=== PATIENT | female | born 1990 ===

== ENCOUNTER 2021-02-18 12:15 | Emergency (ER) | payer OTHER ==
[2021-02-18 12:36] VITALS: BP 127/83
--- NOTE | 2021-02-18 12:36 | Emergency Department Report ---
ED Extremity Problem HPI - General Stated complaint: TOE INJURY - History of Present Illness Initial comments: 30-year-old female presents to the ER with chief complaint of left third toe pain after accidentally kicking a weight. She denies any other injuries. Pain is aggravated by movement. Rates it a 6 out of 10 in severity. She denies any known past medical history, current medication use or known allergies to medications. - Related Data Previous Rx's Medication Instructions Recorded Last Taken Type Naproxen [Naprosyn TAB] 500 mg PO BID #20 tablet 02/18/21 Unknown Rx Allergies Allergy/AdvReac Type Severity Reaction Status Date / Time Penicillins AdvReac Unknown Verified 05/02/16 13:44 ED Review of Systems ROS: Stated complaint: TOE INJURY Other details as noted in HPI Comment: All other systems reviewed and negative Constitutional: denies: chills, fever Eyes: denies: eye pain, eye discharge, vision change ENT: denies: ear pain, throat pain Respiratory: denies: cough, shortness of breath, wheezing Cardiovascular: denies: chest pain, palpitations Endocrine: no symptoms reported Gastrointestinal: denies: abdominal pain, nausea, diarrhea Genitourinary: denies: urgency, dysuria, discharge Musculoskeletal: as per HPI, arthralgia. denies: back pain, joint swelling Skin: denies: rash, lesions Neurological: denies: headache, weakness, paresthesias Psychiatric: denies: anxiety, depression Hematological/Lymphatic: denies: easy bleeding, easy bruising ED Past Medical Hx - Social History Smoking Status: Never Smoker Substance Use Type: None - Medications Home Medications: Home Medications Medication Instructions Recorded Confirmed Last Taken Type Naproxen [Naprosyn TAB] 500 mg PO BID #20 tablet 02/18/21 Unknown Rx ED Physical Exam - General General appearance: alert, in no apparent distress - Head Head exam: Present: atraumatic, normocephalic - Eye Eye exam: Present: normal appearance - ENT ENT exam: Present: normal exam, normal orophraynx, mucous membranes moist - Neck Neck exam: Present: normal inspection. Absent: tenderness, meningismus - Respiratory Respiratory exam: Present: normal lung sounds bilaterally. Absent: respiratory distress, wheezes, rales, rhonchi, stridor - Cardiovascular Cardiovascular Exam: Present: regular rate, normal rhythm, normal heart sounds. Absent: systolic murmur, diastolic murmur, rubs, gallop - GI/Abdominal GI/Abdominal exam: Present: soft, normal bowel sounds - Extremities Exam Extremities exam: Present: normal inspection, full ROM, tenderness (Tenderness palpation over the left third distal toe with mild erythema. No deformity. Normal distal sensation cap refill.) - Back Exam Back exam: Present: normal inspection - Neurological Exam Neurological exam: Present: alert, oriented X3 - Psychiatric Psychiatric exam: Present: normal affect, normal mood - Skin Skin exam: Present: warm, dry, intact, normal color. Absent: rash ED Course Vital Signs 02/18/21 12:33 Temperature 98.7 F Pulse Rate 75 Respiratory 16 Rate Blood Pressure 127/83 O2 Sat by Pulse 100 Oximetry ED Medical Decision Making - Medical Decision Making Patient: ДМИТРИЙ CARR R#: [id number] : 1990 Acct:[id number] Age/Sex: 30 / F ADM Date: 02/18/21 Loc: ED Attending Dr: Ordering Physician: SUSAN PINEDA Date of Service: 02/18/21 Procedure(s): XR toe(s) 2+V LT Accession Number(s): [id number] cc: SUSAN PINEDA Fluoro Time In Minutes: LEFT THIRD TOE 3 VIEWS 1322 INDICATION: pain, swelling, injury COMPARISON: None available. FINDINGS: Toes are mildly flexed. No obvious fractures or dislocations are seen. Signer Name: Hernandez Beltran MD Signed: 02/18/2021 1:45 PM Workstation Name: [id number] Transcribed By: GJ Dictated By: Hernandez Beltran MD Electronically Authenticated By: Hernandez Beltran MD Signed Date/Time: 02/18/21 1345 - Differential Diagnosis Strain, sprain, contusion Critical care attestation.: If time is entered above; I have spent that time in minutes in the direct care of this critically ill patient, excluding procedure time. ED Disposition Clinical Impression: Toe contusion Qualifiers: Encounter type: initial encounter Toe: lesser toe Damage to nail status: without damage Laterality: left Qualified Code(s): S90.122A - Contusion of left lesser toe(s) without damage to nail, initial encounter Disposition: DC-01 TO HOME OR SELFCARE Is pt being admited?: No Condition: Stable Instructions: Contusion, [id number] Prescriptions: Naproxen [Naprosyn TAB] 500 mg PO BID #20 tablet Referrals: TEN LANCASTER DPM [Staff Physician] - 3-5 Days Time of Disposition: 14:24
--- NOTE | 2021-02-18 13:49 | XRay Report ---
LEFT THIRD TOE 3 VIEWS 1322 INDICATION: pain, swelling, injury COMPARISON: None available. FINDINGS: Toes are mildly flexed. No obvious fractures or dislocations are seen. Signer Name: Hernandez Beltran MD Signed: 02/18/2021 1:45 PM Workstation Name: [id number]
== END 2021-02-18 14:52 | disposition home or self-care (01) ==
LOC: ED 12:15
DX: S90.122A Contusion of left lesser toe(s) without damage to nail, initial encounter (principal); Z79.899 Other long term (current) drug therapy; Z88.0 Allergy status to penicillin; W22.8XXA Striking against or struck by other objects, initial encounter; Y93.89 Activity, other specified; Y92.89 Other specified places as the place of occurrence of the external cause; Y99.8 Other external cause status

== ENCOUNTER 2022-05-21 13:32 | Outpatient (CLI) | payer OTHER ==
--- NOTE | 2022-05-21 15:42 | XRay Report ---
RIGHT ANKLE 3 VIEWS INDICATION: POST FALL. COMPARISON: None. IMPRESSION: No acute osseous or soft tissue abnormality. No significant DJD. Signer Name: Nghia Jones Jr, MD Signed: 05/21/2022 3:37 PM Workstation Name: [id number]
== END 2022-05-21 13:33 | disposition home or self-care (01) ==
LOC: XRAY 13:32
PROVIDERS: ATTEND Family Medicine
DX: M25.571 Pain in right ankle and joints of right foot (principal)